=== PATIENT | male | born 1960 | race African-American/Black ===

== ENCOUNTER 2019-09-25 08:16 | Day surgery (SDC) | payer MEDICAID ==
[~2019-09-25] VITALS: Ht 162.6 cm; Wt 75.7 kg
[~2019-09-25 08:16] MED LIST: ASPI-1497 MT; BALANCED SALT IRRIG SOLN COMB2 500ML OP ONE; CYCLOPENTOLATE HCL 1% OPHTH DROPS 2ML LEFTEYE ONE; INSU100I24 SQ; METF-816 MT; PHENYLEPHRINE HCL 10% OPHTH DROPS 5ML LEFTEYE ONE; SODIUM CHLORIDE 0.9% 1,000 ML IV SCH; TROPICAMIDE 1% OPHTH DROPS 15ML LEFTEYE ONE
[2019-09-25] MEDS ORDERED: HYALURONATE SODIUM 10 MG/ML 0.55ML SYRINGE IO ONE (11:01)
[2019-09-25] MEDS ORDERED: MIDAZOLAM HCL 2 MG/2 ML VIAL ONE (11:04)
[2019-09-25] MEDS ORDERED: PREDNISOLONE ACETATE 1% OPHTH DROPS 5ML ONE (13:07)
[2019-09-25] MEDS ORDERED: LIDOCAINE HCL/PF 2% 20 MG/ML 10ML VIAL ONE (13:07)
[2019-09-25] MEDS ORDERED: TROPICAMIDE 1% OPHTH DROPS 15ML ONE (13:07)
[2019-09-25] MEDS ORDERED: PHENYLEPHRINE HCL 10% OPHTH DROPS 5ML ONE (13:07)
[2019-09-25] MEDS ORDERED: TETRACAINE 0.5% OPHTH DROPS 4ML ONE (13:07)
[2019-09-25] MEDS ORDERED: CYCLOPENTOLATE HCL 1% OPHTH DROPS 2ML ONE (13:07)
[2019-09-25] MEDS ORDERED: NEO/POLYMYX B SULF/DEXAMETH OPHTH OINT 3.5GM ONE (13:07)
[2019-09-25] MEDS ORDERED: CIPROFLOXACIN 0.3% OPHTH SOLN 2.5ML ONE (13:07)
[2019-09-25] MEDS ORDERED: BALANCED SALT IRRIG SOLN 15ML ONE (13:07)
== END 2019-09-25 12:55 | disposition home or self-care (01) ==
LOC: OR 08:16
PROVIDERS: ATTEND Ophthalmology
DX: E11.36 Type 2 diabetes mellitus with diabetic cataract (principal); H25.89 Other age-related cataract; I10 Essential (primary) hypertension; G62.9 Polyneuropathy, unspecified; F32.9 Major depressive disorder, single episode, unspecified; Z86.73 Personal history of transient ischemic attack (TIA), and cerebral infarction without residual deficits; Z21 Asymptomatic human immunodeficiency virus [HIV] infection status; Z79.82 Long term (current) use of aspirin; Z79.4 Long term (current) use of insulin; Z79.84 Long term (current) use of oral hypoglycemic drugs; Z79.899 Other long term (current) drug therapy; Z98.890 Other specified postprocedural states
CPT/HCPCS: 66984; 82962; 93005; J2250; J3490; V2632